=== PATIENT | female | born 1990 | race Caucasian/White ===

== ENCOUNTER → 2017-12-18 23:10 | Observation (INO) ==
--- NOTE | 2017-12-18 20:49 | OB/GYN Progress Note ---
Date of Encounter: 12/18/17 Time of Encounter: 20:47 - Assessment and Plan (1) Vaginal discharge during in third trimester Current Visit: Yes Status: Acute Vaginosis panel collected Large amount of thick white/green discharge visualized in vaginal vault. (2) 36 weeks gestation of Current Visit: Yes Status: Acute Admit to observation for labor evaluation. Recheck cervix in 1-2 hours to evaluate for labor. UTI and vaginosis evaluation (3) Abdominal cramping affecting Current Visit: Yes Status: Acute Admit to observation for labor evaluation and UTI evaluation Abdomen soft to palpation. Continuous EFM and toco to monitor for contractions. Subjective - Subjective Principal diagnosis: Abdominal cramping, vaginal discharge Interval history: Leanne is a at 36w4d who arrives with complaint of copious amounts of vaginal discharge today. Denies watery fluid leakage and bleeding and reports positive movement. She also reports abdominal cramping and mid/low back pain. Antepartum ROS: movement normal, contractions, other (heavy vaginal discharge), no loss of fluid, no vaginal bleeding Objective - Exam FHR: category 1 FHR comments: FHR Auscultation: bilateral: normal Abdomen: Present: normal appearance, soft, gravid Cervical dilation: 2 Cervix effacement: 50 station: -3 Comments: SSE reveals large amount of white/green discharge in vaginal vault. Sample obtained for vaginosis panel. SVE without change from exam on Thursday per Dr. Giles. Patient has an appointment with Dr. Giles on Thursday of next week.
[2017-12-18 21:01] LABS: Bilirubin,Urine Negative (Negative); Blood,Urine Negative (Negative); Clarity,Urine Clear (Clear); Color,Urine Yellow (Yellow); Glucose,Urine (UA) Normal (Normal); Ketones,Urine Trace mg/dL (Negative); Leukocyte Esterase,Urine Negative (Negative); Nitrite,Urine Negative (Negative); Protein,Urine 30 mg/dL (Neg-Trace); Specific Gravity,Urine 1.022 (1.010-1.025); Urobilinogen,Urine Normal (Normal)
[2017-12-18 21:02] LABS: Bacteria,Urine Few per hpf (None-Few); Hyaline Casts,Urine None Seen per lpf (None-Few); Squamous Epithelial Cell,Urine Many per lpf (None-Few)
[2017-12-18 21:06] LABS: Calcium Oxalate Crystals,Urine Present; Mucus,Urine Few (Few); RBC,Urine 0-3 per hpf (0-3); Yeast,Urine Few per hpf (None Seen)
[2017-12-18 21:12] LABS: Amphetamine Screen,Urine Negative ng/mL (Cutoff=1000); Barbiturate Screen,Urine Negative ng/mL (Cutoff=200); Benzodiazepines Screen,Urine Negative ng/mL (Cutoff=200); Cannabinoid Screen,Urine Negative ng/mL (Cutoff = 50); Cocaine Screen,Urine Negative ng/mL (Cutoff= 300); Opiate Screen,Urine Negative ng/mL (Cutoff=300); Phencyclidine Screen,Urine Negative ng/mL (Cutoff=25)
[2017-12-18 21:44] LABS: Candida DNA DETECTED (Not Detect); Gardnerella DNA Not Detected (Not Detect); Trichomonas DNA Not Detected (Not Detect)
--- NOTE | 2017-12-18 22:28 | Discharge Summary ---
Date of Encounter: 12/18/17 Time of Encounter: 22:52 - Discharge Diagnosis (1) Vaginal discharge during in third trimester Priority: Secondary Status: Acute Comments: Positive yeast on vaginosis panel. Terazol 7 RX sent to pharmacy via [facility] (2) 36 weeks gestation of Priority: Primary Status: Acute Comments: Irregular contractions. No cervical change while monitored. Follow up as scheduled with Dr. Giles on 12/22/17 (3) Abdominal cramping affecting Priority: Secondary Status: Acute Comments: Irregular contractions on toco monitor. No cervical change. (4) Non-stress test reactive Priority: Secondary Status: Acute Comments: FHR 130 bpm, moderate variability, +15 x 15 accelerations, no decelerations. Irregular uterine contractions noted on toco - Discharge Medications Home Medications: Vit No.129/Iron/FA [ Tablet] 1 each PO DAILY #90 tablet 05/10/17 [Rx] Allergies/Adverse Reactions: Allergy/AdvReac Type Severity Reaction Status Date / Time Latex, Natural Rubber Allergy Rash Verified 02/18/16 09:59 Penicillins [PCN] Allergy See Verified 02/18/16 09:57 Comments Data Procedures and tests throughout hospitalization: Laboratory Tests 12/18/17 12/18/17 12/18/17 20:42 20:42 20:42 Urine Color Yellow Urine Clarity Clear Urine pH 6.0 Ur Specific [place] 1.022 Urine Protein 30 H Urine Glucose (UA) Normal Urine Ketones Trace H Urine Blood Negative Urine Nitrite Negative Urine Bilirubin Negative Urine Urobilinogen Normal Ur Leukocyte Esterase Negative Urine Microscopic RBC 0-3 Urine Microscopic WBC 3-5 H Ur Squamous Epith Cells Many H Calcium Oxalate Crystal Present Urine Bacteria Few Hyaline Casts None Seen Urine Mucus Few Urine Yeast Few H Ur Culture Indicated? NO Urine Opiates Screen Negative Ur Barbiturates Screen Negative Ur Phencyclidine Scrn Negative Ur Amphetamines Screen Negative U Benzodiazepines Scrn Negative Urine Cocaine Screen Negative U Marijuana (THC) Screen Negative Ur Drug Screen Interp See Below Beth species DNA DETECTED A Gardnerella DNA Probe Not Detected Trichomonas DNA Probe Not Detected Labs on day of discharge: Labs from last 24 hours 12/18/17 12/18/17 12/18/17 20:42 20:42 20:42 Urine Color Yellow Urine Clarity Clear Urine pH 6.0 Ur Specific [place] 1.022 Urine Protein 30 H Urine Glucose (UA) Normal Urine Ketones Trace H Urine Blood Negative Urine Nitrite Negative Urine Bilirubin Negative Urine Urobilinogen Normal Ur Leukocyte Esterase Negative Urine Microscopic RBC 0-3 Urine Microscopic WBC 3-5 H Ur Squamous Epith Cells Many H Calcium Oxalate Crystal Present Urine Bacteria Few Hyaline Casts None Seen Urine Mucus Few Urine Yeast Few H Ur Culture Indicated? NO Urine Opiates Screen Negative Ur Barbiturates Screen Negative Ur Phencyclidine Scrn Negative Ur Amphetamines Screen Negative U Benzodiazepines Scrn Negative Urine Cocaine Screen Negative U Marijuana (THC) Screen Negative Ur Drug Screen Interp See Below Beth species DNA DETECTED A Gardnerella DNA Probe Not Detected Trichomonas DNA Probe Not Detected Date of admission: 12/18/17 20:18 Discharging clinician: Trupti Negron Anticipated date of discharge: 12/18/17 - Patient Status Disposition: Home, Self-Care Condition: Good Functional capacity at discharge: independent ambulation Overall status at discharge: patient is progressing back to baseline - Discharge Instructions Follow Up With: Autumn Giles DO [Partnered Physician] - - Diet and Activity Activity: resume usual activities as tolerated Diet: regular diet Hospital Course COMMUNITY SERVICES COORDINATOR Hospital course: Patient arrived with complaint of heavy vaginal discharge. Reports positive movement states she has had some bloody mucus, denies watery leakage. Patient william irregularly appears very uncomfortable with contractions. Encouraged increased fluid intake. Discussed positive yeast results. Patient instructed to begin Terazol treatment tomorrow. Prescription sent to [facility] at patient request. Cervix 2 cm without change while she was here being monitored. Discharge home, to follow-up with Dr. Giles as previously scheduled on 12/22/17. Time Attestation: Total time spent providing and/or coordinating discharge services: Time Spent: Less than 30 minutes Exam - Constitutional General appearance IM: A&O X 3, pleasant, no acute distress, answers questions appropriately - Respiratory Respiratory exam: Present: CTAB - Cardiovascular Cardiovascular exam IM: Present: RRR, +S1, +S2 - GI/Abdominal GI/Abdominal exam IM: normal bowel sounds, soft - Rectal Rectal exam: deferred - Neurological Exam Neurological exam: alert, oriented X3 - VTE Reasons for not Prescribing Prophylaxis: Treatment not Indicated - Low risk for VTE
== END | disposition home or self-care (01) ==
LOC: 1NENULAB
PROVIDERS: ADMIT Obstetrics & Gynecology; ATTEND Obstetrics & Gynecology